=== PATIENT | female | born 1945 | race Caucasian/White ===

== ENCOUNTER → 2022-04-08 | Day surgery (SDC) | payer OTHER, MEDICAID ==
[2022-04-06 13:44] LABS: COVID AG,FIA SOURCE NASAL SWAB
[~2022-04-08] VITALS: Ht 158.8 cm; Wt 84.0 kg
[~2022-04-08] MED LIST: AMLO-258 PO; ARIP5TAB37 PO; ASPI-1450 PO; ATOR40TA28 PO; BRIMONIDINE TARTRATE 0.15% 5 ML OPHTHALMIC SOLUTION OD ONE; BUPR-345 PO; BUSP15 PO; CALC-1275 PO; CARV3 PO; CHONDR SULF A SOD/HYALURONATE 1.05 ML KIT IO ONE; DOCU-350 PO; EPINEPHrine 1:1,000 [1 MG/ML] VIAL IM ONE; FentaNYL CITRATE PF 100 MCG/2 ML VIAL IVP ONE; KETOROLAC TROMETHAMINE 0.5% 5 ML OPHTHALMIC SOLUTION ONE; LIDOCAINE/PF 1% 2 ML VIAL IM ONE; MIDAZOLAM HCL 2 MG/2 ML VIAL IVP ONE; MODA100T65 PO; MOXIFLOXACIN HCL 0.5% 3 ML OPHTHALMIC SOLUTION ONE; PHENYLEPHRINE HCL 2.5% 2 ML OPHTHALMIC SOLUTION ONE; POTA-92 PO; POVIDONE-IODINE 10% 15 ML SOLUTION UD TP ONE; PRAM0.258 PO; RINGERS SOLUTION,LACTATED 500 ML IV ONE; TETRACAINE HCL/PF 0.5% 4 ML OPHTHALMIC SOLUTION OD ONE; TRAZ150T80 PO; TROPICAMIDE 1% 2 ML OPHTHALMIC SOLUTION ONE; VALS160T2 PO
[2022-04-08] MEDS: MOXIFLOXACIN HCL 0.5% 3 ML OPHTHALMIC SOLUTION OD SCH ×3 (10:41→10:55)
[2022-04-08] MEDS: PHENYLEPHRINE HCL 2.5% 2 ML OPHTHALMIC SOLUTION OD SCH ×3 (10:41→10:56)
[2022-04-08] MEDS: KETOROLAC TROMETHAMINE 0.5% 5 ML OPHTHALMIC SOLUTION OD SCH ×3 (10:41→10:55)
[2022-04-08] MEDS: TROPICAMIDE 1% 2 ML OPHTHALMIC SOLUTION OD SCH ×3 (10:41→10:55)
== END | disposition still patient (30) ==
LOC: SURGERY 09:57
PROVIDERS: ATTEND Ophthalmology
DX: E11.36 Type 2 diabetes mellitus with diabetic cataract (principal); H25.11 Age-related nuclear cataract, right eye; I10 Essential (primary) hypertension; F32.9 Major depressive disorder, single episode, unspecified; Z88.0 Allergy status to penicillin; Z23 Encounter for immunization; Z79.899 Other long term (current) drug therapy; Z98.890 Other specified postprocedural states
CPT/HCPCS: 66984; 87426; 93005; C9803; J0171; J2250; J3010; J3490; J7120; Q9967; V2632

== ENCOUNTER 2022-06-10 06:36 | Day surgery (SDC) | payer OTHER, MEDICAID ==
[~2022-06-10] VITALS: Ht 160 cm; Wt 85.5 kg
[~2022-06-10 06:36] MED LIST changes: -BRIMONIDINE TARTRATE 0.15% 5 ML OPHTHALMIC SOLUTION OD ONE; -CHONDR SULF A SOD/HYALURONATE 1.05 ML KIT IO ONE; -EPINEPHrine 1:1,000 [1 MG/ML] VIAL IM ONE; -FentaNYL CITRATE PF 100 MCG/2 ML VIAL IVP ONE; -KETOROLAC TROMETHAMINE 0.5% 5 ML OPHTHALMIC SOLUTION ONE; -LIDOCAINE/PF 1% 2 ML VIAL IM ONE; -MIDAZOLAM HCL 2 MG/2 ML VIAL IVP ONE; -MOXIFLOXACIN HCL 0.5% 3 ML OPHTHALMIC SOLUTION ONE; -PHENYLEPHRINE HCL 2.5% 2 ML OPHTHALMIC SOLUTION ONE; -POVIDONE-IODINE 10% 15 ML SOLUTION UD TP ONE; -RINGERS SOLUTION,LACTATED 500 ML IV ONE; -TETRACAINE HCL/PF 0.5% 4 ML OPHTHALMIC SOLUTION OD ONE; -TROPICAMIDE 1% 2 ML OPHTHALMIC SOLUTION ONE
[2022-06-10] MEDS ORDERED: BALANCED SALT 15 ML OPHTHALMIC IRRIG.SOLN IO ONE (06:37)
[2022-06-10] MEDS ORDERED: POVIDONE-IODINE 10% 15 ML SOLUTION UD TP ONE (06:37)
[2022-06-10] MEDS ORDERED: LIDOCAINE/PF 1% 2 ML VIAL CAUDAL ONE (06:37)
[2022-06-10] MEDS ORDERED: CHONDR SULF A SOD/HYALURONATE 1.05 ML KIT IO ONE (06:37)
[2022-06-10] MEDS ORDERED: EPINEPHrine 1:1,000 [1 MG/ML] VIAL ET ONE (06:37)
[2022-06-10] MEDS ORDERED: TETRACAINE HCL/PF 0.5% 4 ML OPHTHALMIC SOLUTION OD ONE (06:37)
[2022-06-10] MEDS ORDERED: TROPICAMIDE 1% 2 ML OPHTHALMIC SOLUTION ONE (06:43)
[2022-06-10] MEDS ORDERED: PHENYLEPHRINE HCL 2.5% 2 ML OPHTHALMIC SOLUTION ONE (06:43)
[2022-06-10] MEDS ORDERED: RINGERS SOLUTION,LACTATED 500 ML IV ONE ×2 (06:43→07:00)
[2022-06-10] MEDS ORDERED: MOXIFLOXACIN HCL 0.5% 3 ML OPHTHALMIC SOLUTION ONE (06:43)
[2022-06-10] MEDS ORDERED: KETOROLAC TROMETHAMINE 0.5% 5 ML OPHTHALMIC SOLUTION ONE (06:43)
[2022-06-10 07:30] LABS: COVID AG,FIA SOURCE NASAL SWAB
[2022-06-10] MEDS: KETOROLAC TROMETHAMINE 0.5% 5 ML OPHTHALMIC SOLUTION OS SCH ×3 (07:42→08:00)
[2022-06-10] MEDS: TROPICAMIDE 1% 2 ML OPHTHALMIC SOLUTION OS SCH ×3 (07:42→08:00)
[2022-06-10] MEDS: PHENYLEPHRINE HCL 2.5% 2 ML OPHTHALMIC SOLUTION OS SCH ×3 (07:43→08:00)
[2022-06-10] MEDS: MOXIFLOXACIN HCL 0.5% 3 ML OPHTHALMIC SOLUTION OS SCH ×3 (07:43→08:00)
[2022-06-10 09:02] LABS: GLUCOMETER DEV NAME(LOC) SDS.; GLUCOSE,POINT OF CARE 91 MG/DL (70-110)
[2022-06-10] MEDS ORDERED: FentaNYL CITRATE PF 100 MCG/2 ML VIAL IVP ONE (12:00)
[2022-06-10] MEDS ORDERED: MIDAZOLAM HCL 2 MG/2 ML VIAL IVP ONE (12:00)
== END 2022-06-10 09:35 | disposition home or self-care (01) ==
LOC: SURGERY 06:36
PROVIDERS: ATTEND Ophthalmology
DX: E11.36 Type 2 diabetes mellitus with diabetic cataract (principal); H25.12 Age-related nuclear cataract, left eye; I10 Essential (primary) hypertension; F32.9 Major depressive disorder, single episode, unspecified; E78.00 Pure hypercholesterolemia, unspecified; Z88.0 Allergy status to penicillin; Z79.899 Other long term (current) drug therapy; Z98.890 Other specified postprocedural states; Z90.49 Acquired absence of other specified parts of digestive tract; Z98.41 Cataract extraction status, right eye; Z90.710 Acquired absence of both cervix and uterus
CPT/HCPCS: 66984; 82962; 87426; J0171; J3010; J3490; J2250; Q9967; J7120; V2632; C9803